=== PATIENT | male | born 1955 | race Caucasian/White ===

== ENCOUNTER 2023-11-07 12:20 | Observation (INO) ==
[2023-11-07] MEDS ORDERED: IOPAMIDOL 100 ML BOTTLE IV ONE ×2 (12:21)
[2023-11-07] MEDS: HYDROcodone/APAP 5/325MG TABLET PO ONE (12:57)
[2023-11-07 13:28] LABS: Basophils # (Auto) 0.04 K/mcL (0.00-0.30); Basophils % (Auto) 0.5 % (0.0-2.0); Eosinophils # (Auto) 0.29 K/mcL (0.00-0.70); Eosinophils % (Auto) 3.5 % (0.0-7.0); Hematocrit 32.9 % (40.1-51.0); Hemoglobin 11.3 g/dL (13.7-17.5); Lymphocytes # (Auto) 1.65 K/mcL (1.50-4.80); Mean Cell Volume 119.6 fL (80.0-100.0); Mean Corpuscular HGB Conc 34.3 g/dL (31.0-36.0); Mean Platelet Volume 9.4 fL (8.8-12.5); Monocytes # (Auto) 0.87 K/mcL (0.10-0.90); Monocytes % (Auto) 10.5 % (1.0-12.0); Neutrophils % (Auto) 64.3 % (38.0-78.0); Platelet Count 275 K/mcL (140-440); RBC 2.75 M/mcL (4.63-6.08); Red Cell Distribution Width 15.7 % (11.5-14.5); WBC 8.3 K/mcL (4.5-11.0)
[2023-11-07 13:42] LABS: ALT/SGPT 8 U/L (<40); AST/SGOT 34 U/L (<40); Albumin 2.9 gm/dL (3.2-5.2); Albumin/Globulin Ratio 1.4 (1.0-2.3); Alkaline Phosphatase 186 U/L (39-117); Bilirubin,Total 0.8 mg/dL (0.1-1.0); Blood Urea Nitrogen 8 mg/dL (8-23); Calcium 8.5 mg/dL (8.6-10.4); Carbon Dioxide 26 mmol/L (22-30); Chloride 103 mmol/L (96-108); Globulin 2.1 gm/dL (2.2-3.7); Glomerular Filtration Rate 123; Glucose 102 mg/dL (70-105); INR 0.9 (0.9-1.1); Prothrombin Time 12.8 sec (11.9-14.5)
[2023-11-07 14:46] LABS: Appearance,Urine Clear (Clear); Bilirubin,Urine Negative (Negative); Color,Urine Yellow; Culture Indicated,Urine No; Glucose,Urine (UA) Negative (Negative); Ketones,Urine Negative (Negative); Leukocyte Esterase,Urine Negative /uL (Negative); Nitrate,Urine Negative (Negative); Protein,Urine Negative (Negative); Urine Blood Negative ery/mcL (Negative); Urine Hyaline Cast 1 /lph (0-2); Urine RBC 2 /hpf (0-3); Urine Squamous Epithelial Cell 1 /hpf (0-4); Urine WBC 0 /hpf (0-4)
[2023-11-07] MEDS: FUROSEMIDE 100 MG/10 ML VIAL IV ONE (16:27)
[2023-11-07] MEDS: ENOXAPARIN 100 MG/ML SYRINGE SQ ONE (18:23)
[2023-11-07] MEDS ORDERED: ACETAMINOPHEN 325 MG TABLET PO PRN (20:02)
[2023-11-07] MEDS ORDERED: ONDANSETRON 4 MG/2 ML VIAL IV PRN (20:02)
[2023-11-07] MEDS: NICOTINE 14 MG PATCH TOPICAL SCH (21:15)
[2023-11-07] MEDS: SENNOSIDES 1 TABLET PO SCH (21:19)
[2023-11-07] MEDS: 0.9 % SODIUM CHLORIDE 10 ML SYRINGE IV SCH (21:22)
[2023-11-07] MEDS: FUROSEMIDE 40 MG/4 ML VIAL IV SCH (23:17)
[2023-11-07] MEDS: oxyCODONE IR 5 MG TABLET PO PRN (23:46)
[2023-11-07] MEDS: oxyCODONE IR 5 MG TABLET PO ONE (23:47)
[2023-11-07] MEDS: MELATONIN 3 MG TABLET PO ONE (23:51)
[2023-11-08] MEDS: ENOXAPARIN 100 MG/ML SYRINGE SQ SCH (06:03)
[2023-11-08 08:12] LABS: Basophils # (Auto) 0.05 K/mcL (0.00-0.30); Basophils % (Auto) 0.6 % (0.0-2.0); Eosinophils % (Auto) 2.5 % (0.0-7.0); Hematocrit 29.3 % (40.1-51.0); Lymphocytes # (Auto) 2.45 K/mcL (1.50-4.80); Lymphocytes % (Auto) 31.1 % (15.5-49.0); Mean Cell Volume 122.1 fL (80.0-100.0); Mean Corpuscular HGB Conc 34.1 g/dL (31.0-36.0); Mean Platelet Volume 9.4 fL (8.8-12.5); Monocytes % (Auto) 11.4 % (1.0-12.0); Neutrophils % (Auto) 53.3 % (38.0-78.0); Platelet Count 212 K/mcL (140-440); Red Cell Distribution Width 16.1 % (11.5-14.5); WBC 7.9 K/mcL (4.5-11.0)
[2023-11-08] MEDS: LOSARTAN 25 MG TABLET PO SCH (08:15)
[2023-11-08] MEDS: ATORVASTATIN 40 MG TABLET PO SCH (08:16)
[2023-11-08] MEDS: OMEPRAZOLE 20 MG CAPSULE PO SCH (08:16)
[2023-11-08] MEDS: ALLOPURINOL 300 MG TABLET PO SCH (08:16)
[2023-11-08 08:23] LABS: ALT/SGPT 8 U/L (<40); AST/SGOT 36 U/L (<40); Albumin 2.6 gm/dL (3.2-5.2); Albumin/Globulin Ratio 1.3 (1.0-2.3); Alkaline Phosphatase 159 U/L (39-117); Bilirubin,Direct 0.5 mg/dL (<0.3); Bilirubin,Total 0.8 mg/dL (0.1-1.0); Blood Urea Nitrogen 8 mg/dL (8-23); Calcium 8.1 mg/dL (8.6-10.4); Carbon Dioxide 29 mmol/L (22-30); Chloride 101 mmol/L (96-108); Glomerular Filtration Rate 112; Glucose 120 mg/dL (70-105); Lactate Dehydrogenase 229 U/L (135-225); Phosphorous 4.3 mg/dL (2.5-4.5); Triglycerides 100 mg/dL (<150); Uric Acid 3.8 mg/dL (2.5-8.0)
[2023-11-08] MEDS: oxyCODONE IR 5 MG TABLET PO PRN ×2 (12:11→17:54)
[2023-11-08] MEDS: MAGNESIUM HYDROXIDE 30 ML ORAL.SUSP PO PRN (13:45)
[2023-11-08] MEDS ORDERED: MELATONIN 3 MG TABLET PO SCH (19:00)
[2023-11-08] MEDS: MELATONIN 3 MG TABLET PO SCH (19:41)
[2023-11-08] MEDS: BISACODYL 10 MG SUPP.RECT PR PRN (21:02)
[2023-11-08] MEDS: APIXABAN 5 MG TABLET PO SCH (21:21)
[2023-11-09 06:23] LABS: Basophils # (Auto) 0.05 K/mcL (0.00-0.30); Basophils % (Auto) 0.5 % (0.0-2.0); Eosinophils # (Auto) 0.16 K/mcL (0.00-0.70); Eosinophils % (Auto) 1.5 % (0.0-7.0); Hemoglobin 9.4 g/dL (13.7-17.5); Lymphocytes # (Auto) 2.69 K/mcL (1.50-4.80); Lymphocytes % (Auto) 25.5 % (15.5-49.0); Mean Cell Volume 119.5 fL (80.0-100.0); Mean Corpuscular HGB Conc 34.8 g/dL (31.0-36.0); Mean Platelet Volume 9.8 fL (8.8-12.5); Monocytes % (Auto) 9.5 % (1.0-12.0); Neutrophils % (Auto) 62.3 % (38.0-78.0); Platelet Count 210 K/mcL (140-440); RBC 2.26 M/mcL (4.63-6.08); Red Cell Distribution Width 15.9 % (11.5-14.5); WBC 10.5 K/mcL (4.5-11.0)
[2023-11-09 06:47] LABS: ALT/SGPT 7 U/L (<40); AST/SGOT 35 U/L (<40); Albumin 2.5 gm/dL (3.2-5.2); Albumin/Globulin Ratio 1.4 (1.0-2.3); Alkaline Phosphatase 140 U/L (39-117); Bilirubin,Direct 0.4 mg/dL (<0.3); Bilirubin,Total 0.6 mg/dL (0.1-1.0); Blood Urea Nitrogen 9 mg/dL (8-23); Calcium 7.7 mg/dL (8.6-10.4); Carbon Dioxide 32 mmol/L (22-30); Chloride 99 mmol/L (96-108); Globulin 1.8 gm/dL (2.2-3.7); Glomerular Filtration Rate 123; Glucose 102 mg/dL (70-105); Lactate Dehydrogenase 201 U/L (135-225); Phosphorous 3.9 mg/dL (2.5-4.5); Triglycerides 100 mg/dL (<150); Uric Acid 4.1 mg/dL (2.5-8.0)
[2023-11-09] MEDS: MAGNESIUM SULFATE 24.36 MEQ in DEXTROSE 5% IN WATER 50 ML IV ONE (07:53)
[2023-11-09] MEDS: POTASSIUM CHLORIDE 20 MEQ TABLET PO ONE (07:54)
== END 2023-11-09 16:17 | disposition home or self-care (01) ==
LOC: ED 12:20 → MEDSUR 12:20
PROVIDERS: ADMIT Student in an Organized Health Care Education/Training Program; ATTEND Student in an Organized Health Care Education/Training Program